=== PATIENT | female | born 1970 | race Caucasian/White ===

== ENCOUNTER → 2016-05-23 | Outpatient (CLI) | payer OTHER ==
[~2016-05-23] MED LIST: LIDOCAINE 1% INJ-PF (10 MG/ML) 30 ML SDV ONE; MISOPROSTOL 0.2 MG TABLET ONE; OXYTOCIN/NORMAL SALINE 20 UNIT/1,000 ML RTUINJ ONE; PENICILLIN G-K 5 MILLION UNIT VIAL ONE
--- NOTE | 2016-05-24 11:06 | PULMONARY FUNCTION TEST ---
DATE OF SERVICE: 05/23/2016 THE VITAL CAPACITY IS NORMAL. THE EXPIRATORY FLOW RATES ARE NORMAL. THE FEV1/VC IS 81%, PREDICTED: 85% LUNG VOLUMES BY NITROGEN WASH OUT METHOD SHOW: TLC IS 104% OF PREDICTED FRC IS 86% OF PREDICTED RV IS 53% OF PREDICTED THE RV/TLC RATIO IS 17% PREDICTED 33% IMPRESSION: GOOD PATIENT EFFORT. ALTHOUGH THE VC AND FEV1 ARE BOTH NORMAL, THE DECREASE IN FEV1/VC SUGGESTS A SLIGHT OBSTRUCTIVE DEFECT. CC: DREAD PEREZ MD > [facility]
== END ==
LOC: RT 10:27
PROVIDERS: ATTEND Allergy & Immunology
DX: D86.0 Sarcoidosis of lung (principal)
CPT/HCPCS: 94010; 94727